=== PATIENT | male | born 1965 | race Caucasian/White ===

== ENCOUNTER 2016-11-01 07:22 | Day surgery (SDC) | payer OTHER ==
[2016-09-20 13:18] VITALS: BP 129/80
[2016-11-01] MEDS ORDERED: PROPOFOL 500 MG/50 ML VIAL IV ONE (08:00)
--- NOTE | 2016-11-02 09:28 | Operative Note ---
SURGEON: Liam Otero MD ANESTHESIA: MAC anesthesia. ESTIMATED BLOOD LOSS: None. PREOPERATIVE DIAGNOSIS: Screening colonoscopy. POSTOPERATIVE DIAGNOSIS: Mild diverticulosis, otherwise, normal exam. PROCEDURE PERFORMED: Colonoscopy. DESCRIPTION OF PROCEDURE: Patient was brought to the endoscopy suite and placed in the left lateral decubitus position. A rectal exam was performed which was normal. The colonoscope was inserted and passed easily to the cecum. The appendiceal orifice and ileocecal valve were identified. The prep was good. The colonoscope was slowly retracted being careful to inspect all noriega. There was some mild diverticulosis. There were no other findings. There were no polyps or other lesions. The colonoscope was removed. FINDINGS: Mild diverticulosis, otherwise, normal. RECOMMENDATIONS: I recommended a repeat colonoscopy in 10 years. PHILIPPE
== END 2016-11-01 07:23 ==
LOC: OPSURG 07:22
PROVIDERS: ATTEND Colon & Rectal Surgery
DX: Z12.11 Encounter for screening for malignant neoplasm of colon (principal); K57.30 Diverticulosis of large intestine without perforation or abscess without bleeding
CPT/HCPCS: 45378; J2704; S1016

== ENCOUNTER 2017-02-14 08:54 | Day surgery (SDC) | payer OTHER ==
[2016-09-20 13:18] VITALS: BP 129/80
--- NOTE | 2017-02-15 09:51 | Operative Note ---
SURGEON: Liam Otero MD ANESTHESIA: MAC anesthesia. ESTIMATED BLOOD LOSS: None. COMPLICATIONS: None. FINDINGS: Markedly improved esophagitis with only very minimal distal esophagitis remaining. PREOPERATIVE DIAGNOSIS: Esophagitis. POSTOPERATIVE DIAGNOSIS: Esophagitis. PROCEDURE PERFORMED: Esophagogastroduodenoscopy (EGD). DESCRIPTION OF PROCEDURE: The patient was brought to the endoscopy suite and placed in a left lateral decubitus position. MAC anesthesia was administered by the gusset stitcher. The endoscope was inserted and passed easily to the duodenum. The duodenum and stomach were normal. The esophagus had very mild remaining residual esophagitis , which is markedly improved from his prior endoscopy a few months ago. The endoscope was removed. The patient tolerated the procedure well. RECOMMENDATIONS: I recommend a repeat p.r.n. cc: Dr. Mykel PAEZ
== END 2017-02-14 08:55 ==
LOC: OPSURG 08:54
PROVIDERS: ATTEND Colon & Rectal Surgery
DX: K20.8 Other esophagitis (principal)
CPT/HCPCS: J2704; J7120; 43235; S1016

== ENCOUNTER 2017-02-25 11:29 | Outpatient (CLI) | payer OTHER ==
[2016-09-20 13:18] VITALS: BP 129/80
--- NOTE | 2017-02-25 15:26 | Diagnostic Imaging Report ---
[facility]JAM[facility] INFANTE - DELON [facility] [address] [facility] [address] [id number] Report Submission Date: February 25, 2017 2:03:59 PM CDT Patient Study Name: ERICA IQBAL Date: February 25, 2017 11:36:33 AM CDT Modality Type: CR Gender: M Description: ABDOMEN : 65 Institution: [facility] Physician: BENJAMIN INFANTE - DELON Abdomen - one-view Clinical history: Left lower quadrant pain. Findings: Examination of the abdomen in single AP view demonstrates gas and stool in the colon. Psoas margins are well-defined and the properitoneal fat lines are preserved. The visualized visceral silhouettes are within normal limits. There are no unusual intra-abdominal calcifications. Mild degenerative changes are seen in the thoracolumbar spine. Impression: 1. Thoracolumbar spondylosis. 2. Normal bowel gas pattern. Electronically signed on February 25, 2017 2:03:59 PM CDT by: Jayro PAEZ
== END 2017-02-25 11:30 ==
LOC: RAD 11:29
PROVIDERS: ATTEND Family Medicine
DX: R10.32 Left lower quadrant pain (principal)
CPT/HCPCS: 74020

== ENCOUNTER 2018-09-13 11:30 | Emergency (ER) | payer OTHER ==
--- NOTE | 2018-09-13 12:05 | ED Physician Documentation ---
Upper Extremity Problem - HPI Stated Complaint: right arm pain Chief Complaint: Upper Extremity Problem Additional Information: Patient presents to ED with a several day history of right arm swelling and pain localized to lateral elbow. Patient states he underwent umblical hernia surgery about a week ago. The swelling to his right arm is localized just adjacent to were the IV was place. There is some ecchymosis localized to the area as well. Patient states it is painful especially where he can feel a small knot just under the surface of the skin. He denies generalized arm swelling, redness or heat in the arm. He states the pain and swelling is localized to the lateral forearm just below the elbow. He has follow up with his surgeon on Saturday. Location: R forearm Onset: days ago (3) Timing: still present Duration: constant Recent Injury: No Where: home Severity: mild Associated Symptoms: denies: fever, chills, shortness of breath, difficulty breathing, chest pain Exacerbated By: nothing Relieved By: nothing Quality: pain, swelling, tenderness - ROS CONST: other (umbilical hernia surgery 1 week ago) EYES/ENT: none CVS/RESP: denies: chest pain, shortness of breath, palpitations GI/: other (improving incision pain) MS/SKIN/LYMPH: denies: swollen glands NEURO/PSYCH: denies: headache - PAST HX Past History: none, other (Factor V leiden deficiency) Other History: none Surgeries/Procedures: other (umbilical hernia repair) Allergies/Adverse Reactions: Allergies Allergy/AdvReac Type Severity Reaction Status Date / Time Penicillins Allergy Verified 01/20/15 16:12 Home Medications: Ambulatory Orders Medication Instructions Recorded Cefadroxil 500 mg PO BID #10 01/20/15 - SOCIAL HX Smoking History: non-smoker Alcohol Use: none Drug Use: none - FAMILY HX Family History: none - VITAL SIGNS Vital Signs: Vital Signs Temp Pulse Resp BP Pulse Ox 129/80 09/20/16 13:28 - REVIEWED ASSESSMENTS Nursing Assessment Reviewed: Yes Vitals Reviewed: Yes Upper Extremity Problem - EXAM General Appearance: no acute distress, alert Skin: warm/dry, normal color Shoulder Exam: normal inspection, non-tender Elbow/Forearm Exam: ecchymosis (lateral forearm just below elbow, ecchymosis, swelling localized to ecchymosis arean), pain, soft tissue tenderness Wrist Exam: normal inspection Hand Exam: normal inspection Neuro/Tendon: normal sensation EENT: INGA CVS: reg rate & rhythm, heart sounds normal Vascular: no vascular compromise Peripheral: sensation nml Central: oriented X3 Respiratory: no resp. distress, breath sounds nml Abdomen: tenderness (at surgical incision, well healing, no signs of infection) Discharge Clincal Impression: Superficial venous thrombosis of right arm Referrals: Dago Hopson MD [Primary Care Provider] - 2 Days Additional Instructions: 1. Increase Aspirin to 325mg daily 2. Apply warm moist compresses to affected area 3. Follow up with Surgeon as already scheduled on Saturday 4. Return to ED if arm swelling worsens, arm becomes red or Fever >100.0 5. CALL 911 if chest pain or shortness of breath. Condition: Stable Disposition: 01 HOME, SELF-CARE Decision to Admit: NO Date of Decison to Admit: 09/13/18 Decision Time: 12:20
[2018-09-13 12:41] VITALS: BP 122/84
== END 2018-09-13 12:54 | disposition home or self-care (01) ==
LOC: ED 11:30
DX: I82.611 Acute embolism and thrombosis of superficial veins of right upper extremity (principal)
CPT/HCPCS: 99281; 99282